=== PATIENT | female | born 1940 | race Caucasian/White ===

== ENCOUNTER 2021-01-26 06:53 | Day surgery (SDC) | payer OTHER ==
[~2021-01-26] VITALS: Ht 151.1 cm; Wt 66.1 kg
[~2021-01-26 06:53] MED LIST: BUPIVACAINE/PF 0.5% ONE; CHOL10003 PO; FAMO20TA7 PO; FLUO20CA23 PO; HYDR-2214 PO; LIDOCAINE/PF 1%, 30ML ONE; OMEP-110 PO; OXYB5TAB10 PO; VIT1CAPS51 PO; ZOLP10TA PO
[2021-01-26 07:25] VITALS: BP 118/75
[2021-01-26] MEDS ORDERED: CHLORHEXIDINE 15 ML UDC PO ONE (07:30)
[2021-01-26] MEDS ORDERED: LACTATED RINGERS 1,000 ML IV SCH (07:30)
[2021-01-26] MEDS ORDERED: PROPOFOL 100 ML ONE (08:25)
[2021-01-26] MEDS ORDERED: GLYCOPYRROLATE 0.2MG/1ML, 5ML ONE (08:30)
[2021-01-26] MEDS ORDERED: NEOSTIGMINE 1 MG/ML, 10ML ONE (08:30)
[2021-01-26] MEDS ORDERED: CEFAZOLIN 1,000 MG ONE (08:30)
[2021-01-26] MEDS ORDERED: PROPOFOL 10 MG/ML, 20ML ONE (08:30)
[2021-01-26] MEDS ORDERED: ONDANSETRON 2MG/ML, 2ML ONE (08:30)
[2021-01-26] MEDS ORDERED: ROCURONIUM 10 MG/ML,10ML ONE (08:30)
[2021-01-26] MEDS ORDERED: FENTANYL PF 100 MCG/2ML ONE (08:33)
[2021-01-26] MEDS ORDERED: PROMETHAZINE 25 MG/ML, 1ML IV PRN (09:00)
[2021-01-26] MEDS ORDERED: ALBUTEROL SULFATE 2.5 MG/3 ML NPPB PRN (09:00)
[2021-01-26] MEDS ORDERED: MEPERIDINE/PF 25MG/0.5ML IVPush PRN (09:00)
[2021-01-26] MEDS ORDERED: HYDROmorphone 2 MG/ML, 1ML IVPush PRN (09:00)
[2021-01-26] MEDS ORDERED: KETOROLAC 30 MG/1 ML IV PRN (09:00)
[2021-01-26] MEDS ORDERED: ACETAMINOPHEN 325 MG TABLET PO PRN (09:00)
[2021-01-26] MEDS ORDERED: LABETALOL 5MG/ML, 20ML IV PRN (09:00)
[2021-01-26] MEDS ORDERED: DIAZEPAM 5 MG/ML, 2ML IVPush PRN (09:00)
[2021-01-26] MEDS ORDERED: hydrALAzine 20 MG/ML, 1ML IV PRN (09:00)
[2021-01-26] MEDS ORDERED: FENTANYL PF 100 MCG/2ML IV PRN (09:00)
[2021-01-26] MEDS ORDERED: OXYcodone 5 MG/5 ML ORAL.SOL UDC PO PRN (09:00)
== END 2021-01-26 12:48 | disposition home or self-care (01) ==
LOC: OUT 06:53
PROVIDERS: ATTEND Orthopaedic Surgery
DX: M18.11 Unilateral primary osteoarthritis of first carpometacarpal joint, right hand (principal); G56.01 Carpal tunnel syndrome, right upper limb; M25.341 Other instability, right hand; M25.741 Osteophyte, right hand; M65.841 Other synovitis and tenosynovitis, right hand; Z20.822 Contact with and (suspected) exposure to COVID-19; Z79.899 Other long term (current) drug therapy; Z87.891 Personal history of nicotine dependence; Z88.0 Allergy status to penicillin; Z88.8 Allergy status to other drugs, medicaments and biological substances
CPT/HCPCS: 25447; 26480; 29848; 73140; 93005; C1713; J0690; J2405; J2704; J2710; J3010; J7120; U0003; U0005; 76000